=== PATIENT | male | born 1950 | race Caucasian/White ===

== ENCOUNTER 2018-01-10 08:45 | Emergency (ER) | payer MEDICARE, OTHER | END 2018-01-10 10:22 | disposition home or self-care (01) | LOC: ERS 08:45 | DX: S43.102A Unspecified dislocation of left acromioclavicular joint, initial encounter (principal); G20 Parkinson's disease; I10 Essential (primary) hypertension; E78.5 Hyperlipidemia, unspecified; K21.9 Gastro-esophageal reflux disease without esophagitis; Z79.82 Long term (current) use of aspirin; Z79.899 Other long term (current) drug therapy; W18.30XA Fall on same level, unspecified, initial encounter | CPT/HCPCS: 99283 ==

== ENCOUNTER 2020-11-04 16:16 | Emergency (ER) | payer MEDICARE, OTHER ==
[2020-11-04 16:45] LABS: #Eosinphils 0.2 thou/uL (0.0-0.7); #Lymphocytes 1.2 thou/uL (1.20-3.40); #Monocytes 0.6 thou/uL (0.11-0.59); #Neutrophils 3.8 thou/uL (1.40-6.50); %Basophils 0.1 % (0.0-1.0); %Eosinophils 4.1 % (0.0-10.0); %Lymphocytes 19.8 % (21.0-51.0); %Monocytes 11.1 % (0.0-10.0); %Neutrophils 64.9 % (42.0-75.0); Hemoglobin 13.3 g/dL (14.0-18.0); Mean Corpuscular HGB CONC 34.2 g/dL (32.0-36.0); Mean Corpuscular Hemoglobin 33.2 pg (27.0-31.0); Mean Corpuscular Volume 97.2 fL (78.0-98.0); Platelet Count 164 thou/uL (130-400); RBC Distribution Width 12.5 % (11.5-14.5); Red Blood Cell (RBC) Count 3.99 mill/uL (4.70-6.10); White Blood Cell (WBC) Count 5.8 thou/uL (4.8-10.8)
[2020-11-04 17:04] LABS: ALT (SGPT) Less than 7 U/L (8-55); AST (SGOT) 7 U/L (5-34); Alkaline Phosphatase 117 U/L (40-110); Anion Gap 13 mmol/L (10-20); BUN (Urea Nitrogen) 19 mg/dL (8.4-25.7); Bilirubin, Total 0.8 mg/dL (0.2-1.2); Calc. Creatinine Clearance 0 mL/min (70-130); Calcium 8.3 mg/dL (7.8-10.44); Carbon Dioxide 26 mmol/L (23-31); Chloride 110 mmol/L (98-107); Globulin 2.6 g/dL (2.4-3.5); Glucose 89 mg/dL (83-110); Potassium 4.1 mmol/L (3.5-5.1); Protein, Total 6.6 g/dL (5.8-8.1); Sodium 145 mmol/L (136-145)
[2020-11-04] MEDS ORDERED: Morphine 4 MG/ML VIAL ONE (18:02)
[2020-11-04] MEDS ORDERED: Ondansetron PF 4 MG/2 ML Vial ONE (18:02)
== END 2020-11-04 19:51 | disposition home or self-care (01) ==
LOC: ERS 16:16
DX: R07.89 Other chest pain (principal); I10 Essential (primary) hypertension; K21.9 Gastro-esophageal reflux disease without esophagitis; G20 Parkinson's disease; E78.5 Hyperlipidemia, unspecified
CPT/HCPCS: 36415; 71046; 71250; 80053; 84484; 85025; 93005; 96374; 96375; J2270; J2405

== ENCOUNTER 2020-11-09 15:43 | Outpatient (CLI) | payer MEDICARE, OTHER | END 2020-11-09 15:44 | disposition home or self-care (01) | LOC: BICRAD 15:43 | PROVIDERS: ATTEND Family Medicine | DX: S00.83XA Contusion of other part of head, initial encounter (principal); S02.2XXA Fracture of nasal bones, initial encounter for closed fracture | CPT/HCPCS: 70150 ==

== ENCOUNTER 2020-11-20 10:16 | Outpatient (CLI) | payer MEDICARE, OTHER | END 2020-11-20 10:17 | disposition home or self-care (01) | LOC: SCSRAD 10:16 | PROVIDERS: ATTEND Nurse Practitioner Acute Care | DX: R29.6 Repeated falls (principal) ==

== ENCOUNTER 2021-02-20 17:23 | Observation (INO) | payer MEDICARE, OTHER ==
[2021-02-20] MEDS ORDERED: Oxymetazoline HCl 0.05% (30 ML BOT) ONE (17:41)
[2021-02-20 18:09] LABS: #Eosinphils 0.2 thou/uL (0.0-0.7); #Lymphocytes 1.4 thou/uL (1.20-3.40); #Monocytes 0.5 thou/uL (0.11-0.59); %Basophils 0.6 % (0.0-1.0); %Eosinophils 4.3 % (0.0-10.0); %Lymphocytes 27.2 % (21.0-51.0); %Monocytes 9.2 % (0.0-10.0); %Neutrophils 58.8 % (42.0-75.0); Hemoglobin 13.3 g/dL (14.0-18.0); Mean Corpuscular HGB CONC 32.9 g/dL (32.0-36.0); Mean Corpuscular Hemoglobin 31.8 pg (27.0-31.0); Mean Corpuscular Volume 96.6 fL (78.0-98.0); Mean Platelet Volume 8.7 fL (7.4-10.4); Platelet Count 186 thou/uL (130-400); RBC Distribution Width 13.4 % (11.5-14.5); Red Blood Cell (RBC) Count 4.18 mill/uL (4.70-6.10); White Blood Cell (WBC) Count 5.1 thou/uL (4.8-10.8)
[2021-02-20 18:20] LABS: PTT 24.6 sec (22.9-36.1); Prothrombin Time 13.2 sec (12.0-14.7)
[2021-02-20] MEDS ORDERED: Lidocaine 1% w/Epinephrine 1:100K 20 ML VIAL ONE (18:26)
[2021-02-20] MEDS ORDERED: Tranexamic Acid 1,000 MG/10 ML VIAL ONE (18:34)
[2021-02-20 18:36] LABS: ALT (SGPT) Less than 7 U/L (8-55); AST (SGOT) 9 U/L (5-34); Alkaline Phosphatase 158 U/L (40-110); Anion Gap 12 mmol/L (10-20); BUN (Urea Nitrogen) 21 mg/dL (8.4-25.7); Bilirubin, Total 0.9 mg/dL (0.2-1.2); Calc. Creatinine Clearance 0 mL/min (70-130); Calcium 9.2 mg/dL (7.8-10.44); Carbon Dioxide 25 mmol/L (23-31); Chloride 109 mmol/L (98-107); Globulin 3.4 g/dL (2.4-3.5); Glucose 131 mg/dL (83-110); Protein, Total 7.4 g/dL (5.8-8.1); Sodium 142 mmol/L (136-145)
[2021-02-20] MEDS ORDERED: Ondansetron PF 4 MG/2 ML Vial ONE (18:48)
[2021-02-20] MEDS ORDERED: Boostrix 0.5 ML (Tdap) VIAL ONE (18:48)
[2021-02-20] MEDS ORDERED: traMADol HCl 50 MG TAB PO PRN (19:00)
[2021-02-20] MEDS ORDERED: Dextrose 50% Abboject 50 ML SYRINGE SLOW IVP PRN (19:00)
[2021-02-20] MEDS ORDERED: Ondansetron ODT 4 MG TAB PO PRN (19:00)
[2021-02-20] MEDS ORDERED: Dextrose 5% in Water 1,000 ML IV PRN (19:00)
[2021-02-20] MEDS ORDERED: Ondansetron PF 4 MG/2 ML Vial IVP PRN (19:00)
[2021-02-20] MEDS ORDERED: hydrALAZINE 20 MG/ML VIAL SLOW IVP PRN (19:00)
[2021-02-20] MEDS: Acetaminophen 500 MG TAB PO SCH (22:00)
[2021-02-20] MEDS: Sodium Chloride 0.9% 1,000 ML IV SCH (22:28)
[2021-02-20] MEDS: Famotidine 20 MG TAB PO SCH (22:30)
[2021-02-20 22:37] VITALS: BMI 23.6
[2021-02-21] MEDS: Acetaminophen 500 MG TAB PO SCH ×2 (00:16→07:21)
[2021-02-21 06:13] LABS: #Eosinphils 0.1 thou/uL (0.0-0.7); #Monocytes 0.7 thou/uL (0.11-0.59); %Basophils 0.2 % (0.0-1.0); %Eosinophils 2.2 % (0.0-10.0); %Lymphocytes 15.2 % (21.0-51.0); %Monocytes 9.6 % (0.0-10.0); %Neutrophils 72.8 % (42.0-75.0); Hemoglobin 10.5 g/dL (14.0-18.0); Mean Corpuscular HGB CONC 33.2 g/dL (32.0-36.0); Mean Corpuscular Hemoglobin 32.1 pg (27.0-31.0); Mean Corpuscular Volume 96.6 fL (78.0-98.0); Platelet Count 141 thou/uL (130-400); RBC Distribution Width 13.4 % (11.5-14.5); Red Blood Cell (RBC) Count 3.28 mill/uL (4.70-6.10); White Blood Cell (WBC) Count 6.8 thou/uL (4.8-10.8)
[2021-02-21 06:30] LABS: Anion Gap 7 mmol/L (10-20); BUN (Urea Nitrogen) 21 mg/dL (8.4-25.7); Calc. Creatinine Clearance 79 mL/min (70-130); Calcium 7.9 mg/dL (7.8-10.44); Carbon Dioxide 27 mmol/L (23-31); Chloride 111 mmol/L (98-107); Glucose 105 mg/dL (83-110); Sodium 141 mmol/L (136-145)
[2021-02-21] MEDS: Sodium Chloride 0.9% 1,000 ML IV SCH ×2 (06:46→10:46)
[2021-02-21] MEDS: Famotidine 20 MG TAB PO SCH (10:45)
[2021-02-21 11:31] VITALS: BP 129/78; TEMP 98.3
== END 2021-02-21 14:58 | disposition home health service (06) ==
LOC: ERS 17:23 → SURG B 19:00
PROVIDERS: ADMIT Specialist; ATTEND Specialist
DX: S02.2XXA Fracture of nasal bones, initial encounter for closed fracture (principal); S06.5X0A Traumatic subdural hemorrhage without loss of consciousness, initial encounter; S05.42XA Penetrating wound of orbit with or without foreign body, left eye, initial encounter; R29.6 Repeated falls; G20 Parkinson's disease; I10 Essential (primary) hypertension; E78.5 Hyperlipidemia, unspecified; K21.9 Gastro-esophageal reflux disease without esophagitis; Z79.02 Long term (current) use of antithrombotics/antiplatelets; Z79.82 Long term (current) use of aspirin; Z79.899 Other long term (current) drug therapy; Z88.1 Allergy status to other antibiotic agents; Z91.041 Radiographic dye allergy status; Z86.73 Personal history of transient ischemic attack (TIA), and cerebral infarction without residual deficits; W18.30XA Fall on same level, unspecified, initial encounter
CPT/HCPCS: 70450 ×2; 70486; 80048; 80053; 85025 ×2; 85610; 85730; 86850; 86900; 86901; 90715; 97139 ×2; G0378 ×3; 36415; J0690; J2405

== ENCOUNTER 2021-03-05 08:04 | Outpatient (CLI) | payer MEDICARE, OTHER | END 2021-03-05 08:05 | disposition home or self-care (01) | LOC: BICCT 08:04 | PROVIDERS: ATTEND Surgery | DX: S06.5X0D Traumatic subdural hemorrhage without loss of consciousness, subsequent encounter (principal); S00.03XA Contusion of scalp, initial encounter | CPT/HCPCS: 70450 ==

== ENCOUNTER 2021-04-23 08:16 | Outpatient (CLI) | payer MEDICARE, OTHER ==
[2021-04-23 08:46] LABS: Estimated GFR-MDRD - POC Greater than 90
[2021-04-23] MEDS ORDERED: Iopamidol 370 76% 100 ML VIAL ONE (09:44)
== END 2021-04-23 08:17 | disposition home or self-care (01) ==
LOC: RAD 08:16
PROVIDERS: ATTEND Family Medicine
DX: K40.90 Unilateral inguinal hernia, without obstruction or gangrene, not specified as recurrent (principal); R19.00 Intra-abdominal and pelvic swelling, mass and lump, unspecified site; R39.198 Other difficulties with micturition; R63.4 Abnormal weight loss; K44.9 Diaphragmatic hernia without obstruction or gangrene; K59.00 Constipation, unspecified; Z79.899 Other long term (current) drug therapy
CPT/HCPCS: 74177; 82565

== ENCOUNTER 2021-04-25 04:38 | Observation (INO) | payer MEDICARE, OTHER ==
[2021-04-25 05:27] LABS: #Basophils 0.1 thou/uL (0.0-0.2); #Eosinphils 0.2 thou/uL (0.0-0.7); #Lymphocytes 1.6 thou/uL (1.20-3.40); #Monocytes 0.7 thou/uL (0.11-0.59); #Neutrophils 3.1 thou/uL (1.40-6.50); %Basophils 1.1 % (0.0-1.0); %Eosinophils 3.1 % (0.0-10.0); %Lymphocytes 27.7 % (21.0-51.0); %Monocytes 13.1 % (0.0-10.0); %Neutrophils 54.9 % (42.0-75.0); Hemoglobin 12.7 g/dL (14.0-18.0); Mean Corpuscular HGB CONC 31.4 g/dL (32.0-36.0); Mean Corpuscular Hemoglobin 31.1 pg (27.0-31.0); Mean Corpuscular Volume 98.9 fL (78.0-98.0); Platelet Count 159 thou/uL (130-400); RBC Distribution Width 13.7 % (11.5-14.5); Red Blood Cell (RBC) Count 4.08 mill/uL (4.70-6.10); White Blood Cell (WBC) Count 5.6 thou/uL (4.8-10.8)
[2021-04-25 05:56] LABS: ALT (SGPT) Less than 7 U/L (8-55); AST (SGOT) 8 U/L (5-34); Alkaline Phosphatase 98 U/L (40-110); Anion Gap 13 mmol/L (10-20); BUN (Urea Nitrogen) 19 mg/dL (8.4-25.7); Bilirubin, Total 0.6 mg/dL (0.2-1.2); Calc. Creatinine Clearance 0 mL/min (70-130); Calcium 8.9 mg/dL (7.8-10.44); Carbon Dioxide 29 mmol/L (23-31); Chloride 106 mmol/L (98-107); Globulin 2.8 g/dL (2.4-3.5); Glucose 94 mg/dL (83-110); Potassium 4.2 mmol/L (3.5-5.1); Protein, Total 6.8 g/dL (5.8-8.1); Sodium 144 mmol/L (136-145)
[2021-04-25 06:28] LABS: Prothrombin Time 13.3 sec (12.0-14.7)
[2021-04-25] MEDS ORDERED: Aspirin Chewable 81 MG TAB ONE (06:47)
[2021-04-25] MEDS ORDERED: Meclizine HCl 25 MG TAB ONE (07:19)
[2021-04-25] MEDS ORDERED: Acetaminophen 325 MG TAB PO PRN (07:23)
[2021-04-25 08:39] LABS: Hemoglobin A1c 4.9 % (4.0-6.0)
[2021-04-25] MEDS ORDERED: traMADol HCl 50 MG TAB PO PRN (09:05)
[2021-04-25] MEDS ORDERED: Cyanocobalamin 1000 MCG/ML VIAL SC SCH (09:15)
[2021-04-25] MEDS ORDERED: Enoxaparin Sodium 40 MG/0.4 ML SYRINGE ONE (09:43)
[2021-04-25] MEDS: Sodium Chloride 0.9% 1,000 ML IV SCH ×2 (09:59→18:20)
[2021-04-25] MEDS: Enoxaparin Sodium 40 MG/0.4 ML SYRINGE SC SCH (09:59)
[2021-04-25 12:35] LABS: Bacteria/HPF None Seen HPF (None Seen); Bilirubin Negative (Negative); Blood, Urine Negative (Negative); Clarity Clear (Clear); Glucose, Urine (Dipstick) Normal (Negative); Ketone, Urine Negative (Negative); Leukocyte Negative Leu/uL (Negative); Nitrite Negative (Negative); Protein, Urine (Dipstick) Negative (Neg-Trace); RBC/HPF None Seen HPF (0-3); Specific Gravity, Urine 1.011 (1.002-1.036); Squamous Epithelial None Seen HPF (0-3); Urobilinogen Normal mg/dL (Less than 2); WBC/HPF None Seen HPF (0-3); pH, Urine 7.5 (5.0-9.0)
[2021-04-25 16:36] VITALS: BMI 22.4
[2021-04-25 18:10] LABS: SARS-CoV-2 NAA Rapid Test Not Detected (NotDetected)
[2021-04-25] MEDS: CARBIDOPA PO SCH (20:59)
[2021-04-25] MEDS: LEVODOPA PO SCH (20:59)
[2021-04-25] MEDS ORDERED: PRAMIPEXOLE DI HCL 0.375 MG PO SCH (21:00)
[2021-04-26] MEDS: Sodium Chloride 0.9% 1,000 ML IV SCH ×2 (01:25→17:39)
[2021-04-26 06:26] LABS: Cardiac Risk 3.5 (Less than 4.5)
[2021-04-26] MEDS ORDERED: CARBIDOPA PO SCH (09:00)
[2021-04-26] MEDS ORDERED: Atorvastatin Calcium 20 MG TAB PO SCH (09:00)
[2021-04-26] MEDS ORDERED: LEVODOPA PO SCH (09:00)
[2021-04-26] MEDS ORDERED: Amantadine HCl 100 mg Capsule PO SCH (09:00)
[2021-04-26] MEDS: Enoxaparin Sodium 40 MG/0.4 ML SYRINGE SC SCH (13:35)
[2021-04-26] MEDS: LEVODOPA PO SCH (13:39)
[2021-04-26] MEDS: CARBIDOPA PO SCH (13:39)
[2021-04-26 15:57] VITALS: BP 115/71; TEMP 98
== END 2021-04-26 18:25 | disposition home or self-care (01) ==
LOC: ERS 04:38 → ERHOLD 07:26 → INTOOBSV 07:26 → 3SE 15:01
PROVIDERS: ADMIT Internal Medicine; ATTEND Internal Medicine
DX: G45.9 Transient cerebral ischemic attack, unspecified (principal); G93.41 Metabolic encephalopathy; I25.10 Atherosclerotic heart disease of native coronary artery without angina pectoris; I10 Essential (primary) hypertension; I08.3 Combined rheumatic disorders of mitral, aortic and tricuspid valves; E78.5 Hyperlipidemia, unspecified; G20 Parkinson's disease; K21.9 Gastro-esophageal reflux disease without esophagitis; Z20.822 Contact with and (suspected) exposure to COVID-19; Z88.1 Allergy status to other antibiotic agents; Z91.041 Radiographic dye allergy status; Z79.82 Long term (current) use of aspirin; Z79.899 Other long term (current) drug therapy; Z86.73 Personal history of transient ischemic attack (TIA), and cerebral infarction without residual deficits
CPT/HCPCS: 70450; 70551; 80053; 80061; 81001; 82550; 83036; 85025; 85610; 85730; 93005; 93306; 93880; 95712; 95819; 95957; 96372 ×2; 97116 ×2; 97139 ×3; 97530; 97535; 99285; G0378 ×3; U0002; 36415; 36416; J1650; J3420; J7050

== ENCOUNTER 2023-06-26 14:28 | Emergency (ER) | payer MEDICARE, OTHER | END 2023-06-26 16:10 | disposition home or self-care (01) | LOC: ERS 14:28 | DX: S00.33XA Contusion of nose, initial encounter (principal); S00.81XA Abrasion of other part of head, initial encounter; I10 Essential (primary) hypertension; W19.XXXA Unspecified fall, initial encounter | CPT/HCPCS: 70450 ==